=== PATIENT | female | born 1940 | race Caucasian/White ===

== ENCOUNTER → 2019-08-09 11:37 | Outpatient (CLI) | payer OTHER, MEDICAID, SELFPAY ==
--- NOTE | 2019-08-09 11:49 | DI.US.S_ITS ---
PROCEDURE: US ABDOMEN COMPLETE INDICATIONS: EPIGASTRIC PAIN TECHNIQUE: Real-time scanning was performed of the abdominal and retroperitoneal organs, with image documentation. COMPARISON: None. FINDINGS: Liver: Liver is normal in size and homogeneous in echotexture. Scattered nonspecific hepatic calcifications Gallbladder: Unremarkable. No sonographic Watkins sign Biliary ducts: Intrahepatic bile ducts are non-dilated. Extrahepatic bile duct caliber measures 4 mm. Normal is 6-7 mm or less in diameter, or 10 mm or less post-cholecystectomy. Pancreas: Visualized portions of the pancreas are sonographically normal. Spleen: Spleen is normal in size and homogeneous in echotexture. Kidneys: Kidneys are normal in size and echotexture. Right kidney measures 9.9 cm long; left kidney measures 9.8 cm long. No hydronephrosis or nephrolithiasis. No solid masses. 1.7 by 1.6 x 1.4 cm right renal cyst, with largely anechoic/simple appearance. Aorta: Visualized aorta is normal in caliber at less than 3 cm. Iliacs: Proximal common iliac arteries are normal in caliber at less than 2.5 cm. IVC: Intrahepatic inferior vena cava is patent. Miscellaneous: No free abdominal fluid. IMPRESSION: No acute abnormality. Normal appearance of the gallbladder. Dictated by: Howard Jennings M.D. on 08/09/2019 at 18:18 Approved by: Howard Jennings M.D. on 08/09/2019 at 18:20
== END ==
PROVIDERS: PCP Specialist; Referring Provider Internal Medicine; Visit Provider Internal Medicine
DX: R10.13 Epigastric pain (principal); N28.1 Cyst of kidney, acquired
CPT/HCPCS: 76700

== ENCOUNTER → 2021-05-22 12:02 | Outpatient (CLI) | payer OTHER, MEDICAID, SELFPAY ==
--- NOTE | 2021-05-22 12:03 | DI.MRI.S_ITS ---
PROCEDURE: MR CERVICAL SPINE WO CON INDICATIONS: Other specified disorders of synovium and tendon, TECHNIQUE: Noncontrast sagittal T1 spin echo and T2 fast spin echo, sagittal STIR, foraminal oblique sagittal T2 fast spin echo, and axial gradient echo or T2 fast spin echo through the cervical spine. COMPARISON: None. FINDINGS: Image quality: Excellent. Alignment and Curvature: There is trace C7-T1 and T1-T2 anterolisthesis. Bone Marrow: Mild Modic type 1 reactive endplate changes noted adjacent to the C5-C6 and C6-C7 discs. Spinal Cord: Visualized spinal cord has normal size and signal. No cerebellar tonsillar herniation. Paraspinous Soft Tissues: No paravertebral masses. Prevertebral soft tissues are normal in thickness. C2-C3: Loss of disc signal. Mild, diffuse disc bulge. Mild narrowing of the central canal. No neural foraminal narrowing. No neural compression. C3-C4: Loss of disc signal. Mild, diffuse disc bulge. Mild bilateral facet hypertrophy. Mild to moderate narrowing of the central canal. Mild bilateral neural foraminal narrowing. No neural compression. C4-C5: Loss of disc signal. Mild, diffuse disc bulge. Mild to moderate right and mild left facet hypertrophy. Mild to moderate narrowing of the central canal. Mild to moderate bilateral neural foraminal narrowing. No neural compression. C5-C6: Loss of disc signal and height. Moderate, diffuse disc bulge. [id number] bilateral facet hypertrophy. Mild bilateral uncovertebral joint hypertrophy. Moderate narrowing of the central canal. [id number] right and severe left neural foraminal narrowing with compression of the exiting left C6 nerve root. C6-C7: Loss of disc signal and height. Mild bilateral facet hypertrophy. No central stenosis. No neural foraminal narrowing. No neural compression. C7-T1: Normal appearance. IMPRESSION: 1. Multilevel degenerative disc disease. 2. Multilevel facet arthropathy. 3. No severe central canal narrowing. 4. Severe left C5-C6 neural foraminal narrowing with compression of the exiting left C6 nerve root. Dictated by: Shanon Dockery MD, PhD on 05/22/2021 at 15:19 Approved by: Shanon Dockery MD, PhD on 05/22/2021 at 15:26
== END ==
PROVIDERS: PCP Specialist; Referring Provider Internal Medicine; Visit Provider Internal Medicine
DX: R51.9 Headache, unspecified (principal); M50.31 Other cervical disc degeneration, high cervical region; M48.02 Spinal stenosis, cervical region; M47.812 Spondylosis without myelopathy or radiculopathy, cervical region; R29.898 Other symptoms and signs involving the musculoskeletal system
CPT/HCPCS: 72141

== ENCOUNTER → 2021-09-26 14:21 | Outpatient (CLI) | payer OTHER, MEDICAID, SELFPAY | PROVIDERS: PCP Internal Medicine; Referring Provider Internal Medicine; Visit Provider Internal Medicine | DX: M43.02 Spondylolysis, cervical region (principal); Z53.20 Procedure and treatment not carried out because of patient's decision for unspecified reasons ==

== ENCOUNTER → 2021-10-08 13:58 | Outpatient (CLI) | payer OTHER, MEDICAID, SELFPAY ==
--- NOTE | 2021-10-08 14:01 | DI.MRI.S_ITS ---
PROCEDURE: MR HEAD/BRAIN WO CON INDICATIONS: Headache, unspecified TECHNIQUE: Non-contrast axial T1 spin echo, axial T2 fast spin echo, sagittal and axial FLAIR, coronal T2 fast spin echo, axial gradient echo, axial diffusion and ADC through the brain. COMPARISON: None. FINDINGS: Image quality: Excellent. CSF spaces: Ventricles appear symmetric in size and shape. Basal cisterns are patent. No extra-axial fluid collections. Brain: No intracranial bleeds or mass effects. There is cerebral volume loss for age. There are periventricular and deep white matter chronic small vessel ischemic changes. Brainstem appears normal. Diffusion-weighted images show no acute ischemic insults. No chronic ischemic insults. Normal intravascular flow voids are present. Skull and face: Calvarial bone marrow is normal in signal. Orbits are normal. Sinuses: Sinuses and mastoids are clear. IMPRESSION: No acute intracranial abnormality. Mild to moderate global cerebral volume loss and chronic microvascular ischemic changes. Dictated by: Omar Polanco M.D. on 10/08/2021 at 15:36 Approved by: Omar Polanco M.D. on 10/08/2021 at 15:38
== END ==
PROVIDERS: PCP Internal Medicine; Referring Provider Internal Medicine; Visit Provider Internal Medicine
DX: R51.9 Headache, unspecified (principal)
CPT/HCPCS: 70551

== ENCOUNTER → 2021-11-12 14:10 | Outpatient (CLI) | payer OTHER, MEDICAID, SELFPAY | PROVIDERS: PCP Internal Medicine; Referring Provider Internal Medicine; Visit Provider Internal Medicine | DX: M43.02 Spondylolysis, cervical region (principal) ==

== ENCOUNTER 2023-06-11 14:41 | Emergency (ER) | payer MEDICARE, MEDICAID, SELFPAY ==
[2023-06-11 14:44] VITALS: BP 148/89; PULSE 105; RESP 18; TEMP 36.2; O2SAT 95; BMI 18.1
--- NOTE | 2023-06-11 16:12 | ED_ITS ---
HPI - Skin/Abscess/Foreign Bdy <CALIXTO Sims - Last Filed: 06/11/23 16:18> General Chief complaint: Skin/Abscess/Foreign Body Stated complaint: red facial rash Time Seen by Provider: 06/11/23 15:04 History of Present Illness HPI narrative: 83-year-old female, never smoker, presents to the emergency department with complaints of persistent facial rash over last several months. 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 Patient has seen her shrimp peeling machine tender several times and prescribed antibiotics for staph and multiple creams, without any improvement. Patient has not gone back to see her shrimp peeling machine tender recently and would like a definitive cure. Related Data Previous Rx's Medication Instructions Recorded cetirizine 10 mg capsule (Zyrtec) 10 mg PO DAILY #30 caps 06/11/23 mupirocin 2 % topical ointment 1 applic topical BID Impetigo #15 06/11/23 grams Allergies Allergy/AdvReac Type Severity Reaction Status Date / Time ALL MEDICATION PER PT Allergy Unknown Uncoded 09/16/17 12:38 Review of Systems <CALIXTO Sims - Last Filed: 06/11/23 16:18> Review of Systems Narrative: Narrative: See HPI. GENERAL: Denies chills, fatigue, fever, sweats. HEENT: Denies sinus pain, ear pain, sore throat, difficulty swallowing, dizziness. Endorses facial redness, burning and dryness. RESPIRATORY: Denies dyspnea, cough, wheezing, sputum. CARDIOVASCULAR: Denies chest pain, palpitations, edema. GASTROINTESTINAL: Denies vomiting, abdominal pain, diarrhea, constipation. Endorses nausea when taking the antibiotics. MSK: Denies weakness, joint pain, or bony pain. SKIN: Endorses facial redness, itching and burning. Patient states that she notices a large honey-crusted drainage underneath her nostrils every morning, but then removes them because they are annoying. NEUROLOGIC: Denies weakness, dizziness, headache, numbness, confusion. Patient History <CALIXTO Sims - Last Filed: 06/11/23 16:18> Social History Smoking Status: Never smoker Smoking Status: Never smoker Exam <CALIXTO Sims - Last Filed: 06/11/23 16:18> Narrative Exam Narrative: Exam Narrative: GENERAL: This is a well-nourished, well-developed patient, in no acute distress. HEAD: Atraumatic. Normocephalic. EYES: Pupils equal round and reactive. No scleral icterus, injection or drainage. ENT: Nose without bleeding, purulent drainage. Airway patent. NECK: Trachea midline. No JVD or lymphadenopathy. Nontender. RESPIRATORY: Normal respiratory rate and effort. MSK: Moves all extremities. Normal range of motion, no clubbing or edema. Neurovascularly intact. NEURO: A&O x 3. SKIN: Warm, dry. Facial redness and peeling. Initial Vital Signs Initial Vital Signs: Vital Signs Temperature 97.2 F L 06/11/23 14:44 Pulse Rate 105 H 06/11/23 14:44 Respiratory Rate 18 06/11/23 14:44 Blood Pressure 148/89 H 06/11/23 14:44 Pulse Oximetry 95 06/11/23 14:44 Oxygen Delivery Method Room Air 06/11/23 14:44 Reviewed <Julio Pang DO - Last Filed: 06/11/23 17:44> Initial Vital Signs Initial Vital Signs: Vital Signs Temperature 97.2 F L 06/11/23 14:44 Pulse Rate 105 H 06/11/23 14:44 Respiratory Rate 18 06/11/23 14:44 Blood Pressure 148/89 H 06/11/23 14:44 Pulse Oximetry 95 06/11/23 14:44 Oxygen Delivery Method Room Air 06/11/23 14:44 Course <CALIXTO Sims - Last Filed: 06/11/23 16:18> Vital Signs Vital signs: Vital Signs - 8 hr 06/11/23 14:44 Temperature 97.2 F L Pulse Rate 105 H Respiratory Rate 18 Blood Pressure 148/89 H Pulse Oximetry 95 Oxygen Delivery Method Room Air <DO Lan Gonzales Last Filed: 06/11/23 17:44> Vital Signs Vital signs: Vital Signs - 8 hr 06/11/23 14:44 Temperature 97.2 F L Pulse Rate 105 H Respiratory Rate 18 Blood Pressure 148/89 H Pulse Oximetry 95 Oxygen Delivery Method Room Air MDM - Skin/Abscess/Foreign Bdy <CALIXTO Sims - Last Filed: 06/11/23 16:18> Differential Diagnosis Differential diagnosis: Likely urticaria, eczema and impetigo MDM Narrative Medical decision making narrative: 83-year-old female with persistent facial redness and burning. After multiple treatments by her shrimp peeling machine tender, patient is becoming frustrated and would like a definitive cure. Patient's description of honey-crusted lesions underneath her nares is consistent with impetigo. Will treat with mupirocin ointment and Zyrtec for the itching. Strongly recommended patient follow up with her shrimp peeling machine tender for further evaluation and testing. Patient verbalized understanding and was agreeable with course of action Discharge Plan Departure Patient Disposition: Home Clinical Impression: Impetigo Instructions: DI for Impetigo Activity Restrictions/Additional Instructions: *You have been diagnosed with impetigo. I will prescribe a antihistamine for itching and mupirocin ointment for suspected nasal infection. Please apply the ointment to the nasal lesions twice daily and use the antihistamine as needed on a daily basis. Please follow-up with your shrimp peeling machine tender as soon as possible. *What to do: *Please continue to take your regular medications as directed. [ x] New medication prescriptions sent to your pharmacy: [[facility]] [ ] New medication written as a paper prescription [ ] No new medications given *Please follow up with your primary care provider in 2-3 days, call for an appointment. Let them know you were seen in the Emergency Department and that we ask that you be seen in follow up. We will electronically transmit a record of today's note if your PCP is in our system *If you do not have a primary care provider please contact the [facility] Resource line at [phone]. They will ask some questions about your medical history and help get you set up with a doctor in the community. ? Return to ER if you should have any new, worsening or concerning symptoms, such as worsening pain, severe headache, confusion, chest pain, difficulty breathing, fever greater than 101 F, shaking chills, persistent vomiting to the point that you cannot drink fluids, or other new or worsening symptoms. Prescriptions: New mupirocin 2 % ointment 1 applic topical BID Qty: 15 0RF Zyrtec 10 mg capsule 10 mg PO DAILY Qty: 30 0RF Referrals: Dominik Dominguez MD [Primary Care Provider] - Stand Alone Forms: Patient Portal/API ED Sign-out <Julio Pang, DO - Last Filed: 06/11/23 17:44> Cosign ED Attending Cosignature Attestation: Dr Pang Co-Sign Statement: I was available for consultation during this patient's emergency department visit. This chart is signed by myself for administrative purposes only. I did not have direct contact with this patient during this visit. They were seen independently by the APC.
--- NOTE | 2023-06-11 16:31 | PC.NURSE ---
patient has red rash over her eyes. She was assessed and discharged by the ED BALANCE STAFF STAKER today.
== END 2023-06-11 16:32 | disposition home or self-care (01) ==
PROVIDERS: Emergency Provider Registered Nurse; PCP Internal Medicine
DX: L01.00 Impetigo, unspecified (principal)
CPT/HCPCS: 99281; 99283

== ENCOUNTER → 2023-09-02 15:06 | Outpatient (CLI) | payer MEDICARE, MEDICAID, SELFPAY ==
--- NOTE | 2023-09-02 15:07 | DI.CT.S_ITS ---
PROCEDURE: CT SINUS SCREEN WO CON INDICATIONS: Other specified disorders of nose and nasal sinus TECHNIQUE: Noncontrast 3.0 mm axial images acquired from the frontal sinuses to the mid-sella, with coronal and sagittal reformats. For radiation dose reduction, the following was used: automated exposure control, adjustment of mA and/or kV according to patient size. COMPARISON: [facility], MR, MR HEAD/BRAIN WO CON, 10/08/2021, 14:17. FINDINGS: Image quality: Excellent. Maxillary Sinuses: No bony remodeling or destruction. Sinuses are clear. Ethmoid Air Cells: No bony remodeling or destruction. Sinuses are clear. Sphenoid Sinuses: No bony remodeling or destruction. Sinuses are clear. Frontal Sinuses: No bony remodeling or destruction. Sinuses are clear. Ostiomeatal Complexes: Ostiomeatal complexes are patent, if there constitutionally narrowed. There are mild bilateral Drew cells. Miscellaneous: Visualized intra-orbital contents are normal. There are bilateral lorne bullosa. There is a mild degree of rightward nasal septal deviation. Focal degenerative change is seen involving the C1-C2 interface anteriorly. IMPRESSION: The significant active paranasal sinus disease can be seen. The ostiomeatal complexes are patent, and they are mildly constitutional, with mild Drew cells. Bilateral lorne bullosa can be seen. There is mild rightward nasal septal deviation. Dictated by: Talon Ramírez M.D. on 09/02/2023 at 14:42 Approved by: Talon Ramírez M.D. on 09/02/2023 at 14:44
== END ==
PROVIDERS: PCP Internal Medicine; Referring Provider Internal Medicine; Visit Provider Internal Medicine
DX: J34.89 Other specified disorders of nose and nasal sinuses (principal); J34.3 Hypertrophy of nasal turbinates; J34.2 Deviated nasal septum
CPT/HCPCS: 70486

== ENCOUNTER 2024-04-27 15:02 | Emergency (ER) | payer MEDICARE, MEDICAID, SELFPAY ==
[2024-04-27 15:12] VITALS: BP 125/59; PULSE 96; RESP 18; TEMP 36.9; O2SAT 95; BMI 20.5
== END 2024-04-27 17:01 | disposition left against medical advice (07) ==
PROVIDERS: Emergency Provider Emergency Medicine; PCP Internal Medicine
CPT/HCPCS: 99281